=== PATIENT | female | born 1960 | race Two or more races ===

== ENCOUNTER 2018-10-24 13:27 | Outpatient (CLI) | payer OTHER | END 2018-10-24 13:34 | disposition home or self-care (01) | LOC: RAD 13:27 | DX: R05 Cough (principal); B20 Human immunodeficiency virus [HIV] disease ==

== ENCOUNTER 2019-08-22 14:02 | Outpatient (CLI) | payer OTHER | END 2019-08-22 14:30 | disposition home or self-care (01) | LOC: SONOGRAMA 14:02 → MAMO-SONO 14:15 → SONOGRAMA 14:30 | DX: E04.1 Nontoxic single thyroid nodule (principal) ==

== ENCOUNTER 2019-08-31 14:07 | Outpatient (CLI) | payer OTHER | END 2019-08-31 14:18 | disposition home or self-care (01) | LOC: NUCLEAR 14:07 | DX: M85.89 Other specified disorders of bone density and structure, multiple sites (principal) ==

== ENCOUNTER → 2019-09-05 | Outpatient (CLI) | payer OTHER | END | disposition home or self-care (01) | LOC: TOM 07:33 | DX: Q42 Congenital absence, atresia and stenosis of large intestine (principal) ==

== ENCOUNTER 2022-03-16 07:35 | Outpatient (CLI) | payer OTHER | END 2022-03-16 07:42 | disposition home or self-care (01) | LOC: RAD 07:35 | DX: B20 Human immunodeficiency virus [HIV] disease (principal); R05.9 Cough, unspecified ==